=== PATIENT | male | born 1995 | race Caucasian/White ===

== ENCOUNTER 2020-11-21 16:40 | Emergency (ER) | payer OTHER, MEDICAID, SELFPAY ==
[2020-11-21 17:01] VITALS: BP 88/52; PULSE 77; RESP 20; TEMP 36.8; O2SAT 99
[2020-11-21] MEDS: LIDOCAINE, EPINEPHRINE, TETRACAINE VISCOUS SOLN 3 ML TOPICAL (17:56)
--- NOTE | 2020-11-21 18:02 | ED.GENADULT ---
HPI - General Adult General Chief complaint: Seizure Stated complaint: LACERATION REPAIR S/P SZ Time Seen by Provider: 11/21/20 17:31 History of Present Illness HPI narrative: Patient is a 25-year-old male who presents ER with laceration to left eyebrow. Patient had a seizure which is typical of him. He hit his head causing the laceration. No loss of consciousness according to mother who is present for the entirety of the event. Patient compliant with her medications. Patient is unable to talk or see. Related Data Home Medications Medication Instructions Recorded Confirmed clonazepam 1 mg tablet 1 mg PO DAILY PRN 03/26/19 12/17/19 lamotrigine 100 mg tablet See Rx Instructions PO BID 03/26/19 12/17/19 multivitamin,me-mtdo-pwyujoiv 1 tablet PO DAILY 03/26/19 12/17/19 divalproex 250 mg tablet,extended 250 mg PO DAILY tablet 12/17/19 12/17/19 release 24 hr Allergies Allergy/AdvReac Type Severity Reaction Status Date / Time amoxicillin Allergy Rash Verified 11/21/20 17:06 Review of Systems Review of Systems: ROS unobtainable: Yes unobtainable due to mental status PMFSH Past Medical History Medical History (Updated 11/21/20 @ 19:28 by Tru Brambila MD) Acne vulgaris Acute non-recurrent maxillary sinusitis Blood bacterial culture positive Cerebral palsy CP (cerebral palsy), spastic, quadriplegic Kyphoscoliosis RSV (acute bronchiolitis due to respiratory syncytial virus) Seizure disorder Seizures Social History Social History (Updated 03/26/19 @ 15:52 by Reggie Kc [facility]) Smoking status: Never smoker Alcohol intake: never Substance use: never Exam Narrative: GENERAL: Well-appearing, well-nourished, and in no acute distress. HEAD: Normocephalic, 2 cm laceration just inferior to the left lateral eyebrow. ENT: Mucous membranes moist. EXTREMITIES: Contractures and atrophy of the upper and lower extremities. SKIN: Warm, dry, no rash. Laceration as noted above. No foreign body, superficial. NEURO: Awake and alert and at neurologic baseline. Course Course Emergency Course: Laceration repair. Discharge home. Vital Signs Vital signs: Vital Signs Temperature 98.3 F 11/21/20 17:01 Pulse Rate 77 08/16/21 17:01 Respiratory Rate 20 11/21/20 17:01 Blood Pressure 88/52 L 11/21/20 17:01 Pulse Oximetry 99 11/21/20 17:01 Temperature 98.3 F 11/21/20 17:01 Pulse Rate 77 11/21/20 17:01 Respiratory Rate 20 11/21/20 17:01 Blood Pressure 88/52 L 11/21/20 17:01 Pulse Oximetry 99 11/21/20 17:01 Procedures Laceration Laceration 1: Date: 11/21/20 Time: 19:26 Site: face Side (If applicable): left Size (cm): 2 Description: linear Depth: simple, single layer Local Anesthetic: other anesthetic (LET) Amount of anesthesia used (mL): 3 Pre-repair: irrigated ====== Skin Level ====== Skin layer closed with: vicryl Size (cm): 5-0 Number of sutures: 4 Technique: simple, interrupted ====== Subcutaneous Layer ====== ====== Muscle Layer ====== ====== Tendon Layer ====== Medical Decision Making Vital Signs Vital Signs: Vital Signs Temperature 98.3 F 11/21/20 17:01 Pulse Rate 77 11/21/20 17:01 Respiratory Rate 20 11/21/20 17:01 Blood Pressure 88/52 L 11/21/20 17:01 Pulse Oximetry 99 11/21/20 17:01 Temperature 98.3 F 11/21/20 17:01 Pulse Rate 77 11/21/20 17:01 Respiratory Rate 20 11/21/20 17:01 Blood Pressure 88/52 L 11/21/20 17:01 Pulse Oximetry 99 11/21/20 17:01 Discharge Plan Discharge Clinical Impression: Laceration Patient Disposition: Home, Self-Care Condition: Stable Instructions: Antibiotic Form, Care For Your Absorbable Stitches (ED) Additional Instructions: Return the ER if your wound is red and hot, it is draining pus, you have fever over 100.4 ?F, you have additional concerns. Prescription
== END 2020-11-21 19:34 | disposition home or self-care (01) ==
PROVIDERS: Emergency Provider Emergency Medicine; PCP Family Medicine
DX: S01.112A Laceration without foreign body of left eyelid and periocular area, initial encounter (principal); G80.9 Cerebral palsy, unspecified; G80.0 Spastic quadriplegic cerebral palsy; G40.909 Epilepsy, unspecified, not intractable, without status epilepticus; W22.8XXA Striking against or struck by other objects, initial encounter
CPT/HCPCS: 12011; 99282